=== PATIENT | female | born 1985 | race Caucasian/White ===

== ENCOUNTER 2017-06-15 11:25 | Emergency (ER) | payer OTHER ==
[~2017-06-15] VITALS: Ht 170.2 cm; Wt 59.0 kg
[2017-06-15 11:30] VITALS: BP 132/88
[2017-06-15] MEDS ORDERED: IBUPROFEN 600 MG TABLET PO ONE ×2 (11:48→12:00)
== END 2017-06-15 11:54 | disposition home or self-care (01) ==
LOC: ER 11:26
DX: J02.8 Acute pharyngitis due to other specified organisms (principal); B97.89 Other viral agents as the cause of diseases classified elsewhere; J45.909 Unspecified asthma, uncomplicated; F31.9 Bipolar disorder, unspecified; M79.7 Fibromyalgia; Z90.89 Acquired absence of other organs
CPT/HCPCS: A4606; Z7610